=== PATIENT | male | born 1985 | race Caucasian/White ===

== ENCOUNTER 2021-02-07 15:40 | Emergency (ER) | payer SELFPAY ==
[~2021-02-07] VITALS: Ht 167.6 cm; Wt 81.6 kg
[2021-02-07 16:30] VITALS: BP_SYST 134
--- NOTE | 2021-02-07 16:30 | NUR ---
Patient to ER bed 3 to gown for evaluation. Side rails up.
[2021-02-07] MEDS ORDERED: SULF1TAB48 PO (16:59)
[2021-02-07 17:24] VITALS: BP_SYST 111
--- NOTE | 2021-02-07 17:25 | NUR ---
Patient given written and verbal discharge instructions and verbalizes understanding. ER MD discussed with patient the results and treatment provided. Patient in stable condition. ID arm band removed. IV catheter removed intact and dressing applied, no active bleeding. Rx of given. Patient educated on pain management and to follow up with PMD. Pain Scale . Opportunity for questions provided and answered. Medication side effect fact sheet provided.
== END 2021-02-07 17:24 | disposition home or self-care (01) ==
LOC: SED 15:40
DX: L03.116 Cellulitis of left lower limb (principal); Z79.899 Other long term (current) drug therapy
CPT/HCPCS: 99282